=== PATIENT | female | born 1985 | race Caucasian/White ===

== ENCOUNTER 2016-08-03 12:26 | Outpatient (CLI) | payer SELFPAY ==
[2012-08-31 21:07] VITALS: BP 132/71
[2016-08-03 12:49] LABS: APPEARANCE,URINE Cloudy (CLEAR); COLOR,URINE Amber (YELLOW); OCCULT BLOOD,URINE Negative (NEGATIVE)
[2016-08-03 12:50] LABS: BASOPHILS % 0.1 (0.0-1.5); EOSINOPHILS % 1.7 % (0.0-6.8); LYMPHOCYTES # 0.8 # k/uL (0.6-4.0); MEAN CORPUSCULAR HEMOGLOBIN 30.7 pg (28.0-34.0); MONOCYTES # 0.2 # k/uL (0.0-0.9); MONOCYTES % 3.3 % (0.0-11.0); NEUTROPHILS # 5.4 # k/uL (1.4-7.7)
[2016-08-03 13:03] LABS: AMORPHOUS SEDIMENT,UR FEW (NEGATIVE)
[2016-08-03 14:19] LABS: eGFR (African) > 60; eGFR (Non-African) > 60
== END 2016-08-03 12:27 ==
LOC: LAB 12:26
PROVIDERS: ATTEND Family Medicine
DX: R58 Hemorrhage, not elsewhere classified (principal); F10.20 Alcohol dependence, uncomplicated; R10.84 Generalized abdominal pain; R30.0 Dysuria
CPT/HCPCS: 36415; 80053; 81002; 85025